=== PATIENT | female | born 1980 | race African-American/Black ===

== ENCOUNTER 2020-03-26 10:10 | Outpatient (CLI) | payer OTHER, SELFPAY ==
--- NOTE | 2020-04-03 09:46 | WPDPFTINT ---
PFT Interpretation PFT Interpretation: This PFT met all criteria for ATS standards and reproducibility FEV/FVC post bronchodilator of 81% FEV1 104% or 2.38 liters FVC 100% or 2.94 liters FEF 25-75% of 50% There was significant improvement in post bronchodilator FEV1 by 30% and 560 ml TLC 96% RV 112% RV/TLC 37% DLCO 70% when adjusted for alveolar volume but not adjusted for hemoglobin Flow volume loops showed significant end expiratory coving. Impression: Mild airflow obstruction with good response to bronchodilators and mildly decreased diffusion capacity. This pattern is mostly suggestive of Asthma or reactive airway disease but other pulmonary conditions cannot be ruled out. Clinical correlation is advised.
== END 2020-03-26 10:11 | disposition home or self-care (01) ==
PROVIDERS: PCP Nurse Practitioner Family; Visit Provider Nurse Practitioner Gerontology
DX: J45.909 Unspecified asthma, uncomplicated (principal)
CPT/HCPCS: 94060; 94726; 94729